=== PATIENT | female | born 1950 | race Caucasian/White ===

== ENCOUNTER → 2019-05-30 06:55 | Day surgery (SDC) | payer MEDICARE ==
--- NOTE | 2019-05-24 12:10 | HP ---
PREOPERATIVE HISTORY AND PHYSICAL: DATE OF SURGERY/ADMISSION: 05/30/19 [facility] DATE OF VISIT/ENCOUNTER: 05/10/19 ATTENDING SURGEON: Dorinda Trammell MD * (DICTATED BY MAURICIO SMART) PROCEDURE: Trigger finger release, right long finger. HISTORY OF PRESENT ILLNESS: This is a 68-year-old female who has had problems with triggering in her right middle finger for several months. She occasionally gets locking of the finger. She has received cortisone injection in the past which was helpful; however, the symptoms returned. She is now interested in pursuing surgical intervention for this problem. PAST MEDICAL HISTORY: 1. History of melanoma. 2. Varicose veins. 3. GERD. 4. History of migraine headache. PAST SURGICAL HISTORY: 1. Skin lesion resection, left submandibular area secondary to melanoma. 2. Emergency . 3. Right breast lumpectomy. 4. Right knee arthroscopy. MEDICATIONS: 1. Butalbital/acetaminophen/caffeine 50/325 one tab q.4 hours p.r.n. migraine headaches. 2. Valacyclovir HCL 500 mg every third day. 3. Xigv-doz-gxurjdh acid reflux medications. ALLERGIES: No known drug allergies. FAMILY MEDICAL HISTORY: Heart disease and cancer. 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 She denies tobacco use or recreational drug use. She drinks alcohol on rare occasion. REVIEW OF SYSTEMS: Negative for general, cephalic, cardiovascular, respiratory , GI, , other musculoskeletal, integumentary, endocrine, neurologic, and hematologic symptoms. Infectious Disease: Negative for MRSA, hepatitis C, and HIV. PHYSICAL EXAMINATION GENERAL: Well-developed, well-nourished 68-year-old female in no acute distress. VITAL SIGNS: Height 5 feet 2 inches, weight 180 pounds, pulse rate 94, blood pressure 132/78. HEENT: Normocephalic, atraumatic. Pupils are equal, round, and reactive to light and accommodation. Extraocular movements are intact. Throat is clear. NECK: Supple. No palpable lymph nodes. PULMONARY: Lungs are clear to auscultation bilaterally. No wheezes, rales, or rhonchi. CARDIOVASCULAR: Regular rate and rhythm. S1 and S2. No murmurs, rubs, or gallops. No edema. ABDOMEN: Positive bowel sounds. Soft and nontender. NEUROLOGICAL: Alert and oriented x3. Cranial nerves II through XII are intact. Sensation is intact to light touch. MUSCULOSKELETAL: On exam of her right hand, she has tenderness to palpation at the A1 nj of the middle finger and triggering with range of motion. Skin is intact. Neurovascular function is intact. IMPRESSION: Right long finger trigger finger. PLAN: The patient is scheduled to undergo a trigger finger release right long finger with Dr. Trammell on 05/30/19. She will return to the office 10 days postoperative for followup and suture removal. A prescription for tramadol was e-scribed to the patient's pharmacy for postoperative pain management. MAURICIO SMART [id number]/CPS #: [id number] MTDD
[~2019-05-30 06:55] MED LIST: Buffered Lidocaine 1% SYRIN* 1 ML/SYRINGE INTRADERM ONE; Lactated Ringers 1000 ML Bag* 1,000 ML IV SCH; Lidocaine 1% INJ* 10 MG/ML 30 ML SDV ONE; Midazolam* 1 MG/ML 2 ML VIAL (2 MG) ONE; Naloxone* 0.4 MG/ML 1 ML VIAL IV PRN; Propofol* 10 MG/ML 20 ML BTL ONE; fentaNYL* 50 MCG/ML 2 ML VIAL (100 MCG VIAL) ONE
--- NOTE | 2019-05-30 09:45 | OP ---
DATE OF OPERATION: 05/29/19 [facility] DATE OF : 52 SURGEON: Dorinda Trammell MD STUDIO DESIGNER: MAURICIO Barcenas ANESTHESIA: Local MAC. PRE-OP DIAGNOSIS: Right long finger trigger finger. POST-OP DIAGNOSIS: Right long finger trigger finger. OPERATIVE PROCEDURE: Right long finger trigger release. ESTIMATED BLOOD LOSS: Zero. TOURNIQUET TIME: About 10 minutes. INDICATIONS FOR PROCEDURE: Gianna is a 68-year-old female, who has triggering and locking of her right middle finger. She presents for trigger release. DESCRIPTION OF PROCEDURE: The patient was brought to the operating room, was given a sedation anesthetic and a local infiltration of 10 cc of 1% plain lidocaine in the palm of her right hand overlying the middle finger A1 nj. The skin of her right hand and forearm was prepped and draped in the usual sterile fashion. The hand and forearm were exsanguinated and the tourniquet elevated to 250 mmHg. A transverse incision was made centered over the A1 nj of the middle finger. We dissected through the subcutaneous tissue down to the A1 nj of the middle finger. The nj was incised longitudinally and completely released. The flexor tendons were in good condition. There was minimal tenosynovitis. The wound was irrigated and the skin edges were reapproximated with 4-0 nylon suture. The wound was dressed with Xeroform, 4x4 , Webril, and an Alok wrap. The patient tolerated the procedure well and was brought to the recovery room in good condition. [id number]/CPS #: [id number] MTDAna
[2019-05-30 10:02] VITALS: BP 143/66
== END | disposition home or self-care (01) ==
LOC: OREAST 06:55
PROVIDERS: ATTEND Orthopaedic Surgery
DX: M65.331 Trigger finger, right middle finger (principal); Z85.820 Personal history of malignant melanoma of skin; K21.9 Gastro-esophageal reflux disease without esophagitis
CPT/HCPCS: J2250; J2704; J3010

== ENCOUNTER 2021-01-02 10:00 | Inpatient (IN) ==
[2021-01-02] MEDS ORDERED: NS 0.9% 1000 ml BAG 1,000 ML IV ONE (11:39)
[2021-01-02 12:08] LABS: ABS Lymphocytes 1.2 10^3/ul (1.0-4.8); ABS Monocytes 0.3 10^3/ul (0-0.8); ABS Neutrophils 3.1 10^3/ul (1.5-7.7); Eosinophil % 0.5 %; Hematocrit 38 % (35-47); Hemoglobin 13.1 g/dL (12.0-16.0); Mean Corpuscular HGB Conc 34 g/dL (31-36); Mean Corpuscular Hemoglobin 31 pg (27-31); Mean Corpuscular Volume 91 fL (80-97); Mean Platelet Volume 7.9 fL (7.4-10.4); Nucleated Red Blood Cells % 0.1; Platelet Count 243 10^3/uL (150-450); Red Blood Count 4.23 10^6 /uL (3.70-4.87); Red Cell Distribution Width 13 % (10-15); White Blood Count 4.6 10^3/uL (3.5-10.8)
[2021-01-02 12:30] LABS: Albumin 4.1 g/dL (3.2-5.2); Albumin/Globulin Ratio 1.2 (1-3); Calcium 9.4 mg/dL (8.6-10.3); EGFR African American 95.6 (>60); Globulin 3.4 g/dL (2-4); Potassium 4.2 mmol/L (3.5-5.0); Total Bilirubin 0.4 mg/dL (0.2-1.0); Total Protein 7.5 g/dL (6.4-8.9)
[2021-01-02 13:05] LABS: TSH Ultra Thyroid Stim Horm 1.06 mcIU/mL (0.34-5.60)
[2021-01-02 13:52] LABS: Urine Appearance Clear; Urine Bilirubin Negative (Negative); Urine Blood Negative (Negative); Urine Color Straw; Urine Glucose Negative (Negative); Urine Ketones 1+ (Negative); Urine Nitrite Negative (Negative); Urine Protein Negative (Negative); Urine Specific Gravity 1.006 (1.002-1.030); Urine Urobilinogen Negative (Negative)
[2021-01-02 13:57] LABS: Urine Bacteria 1+ (Absent); Urine Red Blood Cell Trace(0-2/hpf) (Absent); Urine Squamous Epithelial Cell Present (Absent); Urine White Blood Cell 1+(6-10/hpf) (Absent)
[2021-01-02] MEDS ORDERED: Ondansetron 4 mg VIAL 2 MG/ML 2 ml VIAL IV PRN (15:28)
[2021-01-03] MEDS ORDERED: Gadoteridol (CONTRAST) 279.3 MG/ML 10 ML IV ONE (14:55)
[2021-01-05 06:06] LABS: ABS Eosinophils 0.1 10^3/ul (0-0.6); ABS Lymphocytes 1.8 10^3/ul (1.0-4.8); ABS Monocytes 0.4 10^3/ul (0-0.8); ABS Neutrophils 2.1 10^3/ul (1.5-7.7); Eosinophil % 2.7 %; Hematocrit 35 % (35-47); Hemoglobin 12.2 g/dL (12.0-16.0); Lymphocyte % 40.3 %; Mean Corpuscular HGB Conc 35 g/dL (31-36); Mean Corpuscular Hemoglobin 31 pg (27-31); Mean Corpuscular Volume 90 fL (80-97); Mean Platelet Volume 7.5 fL (7.4-10.4); Nucleated Red Blood Cells % 0.1; Platelet Count 236 10^3/uL (150-450); Red Cell Distribution Width 13 % (10-15); White Blood Count 4.5 10^3/uL (3.5-10.8)
[2021-01-05 06:26] LABS: Calcium 8.7 mg/dL (8.6-10.3); EGFR African American 97.2 (>60); EGFR Non-African American 80.3 (>60); Potassium 3.9 mmol/L (3.5-5.0)
[2021-01-06] MEDS ORDERED: ceFAZolin 2 GM PREMIX 2 GM/50 ML BAG IVPB ONE (12:00)
[2021-01-06 12:23] LABS: Activated Partial Thrombo Time 28.8 seconds (26.0-38.0); INR 1.14 (0.82-1.09)
[2021-01-06] MEDS ORDERED: Gadoteridol (CONTRAST) 279.3 MG/ML 10 ML IV ONE (15:49)
[2021-01-06] MEDS ORDERED: Iohexol 300 (CONTRAST) 10 ML SDV IV ONE (17:35)
[2021-01-07 06:07] LABS: ABS Eosinophils 0.1 10^3/ul (0-0.6); ABS Lymphocytes 1.6 10^3/ul (1.0-4.8); ABS Monocytes 0.4 10^3/ul (0-0.8); ABS Neutrophils 2.3 10^3/ul (1.5-7.7); Eosinophil % 2.2 %; Hematocrit 34 % (35-47); Hemoglobin 12.1 g/dL (12.0-16.0); Lymphocyte % 36.2 %; Mean Corpuscular HGB Conc 35 g/dL (31-36); Mean Corpuscular Hemoglobin 32 pg (27-31); Mean Corpuscular Volume 90 fL (80-97); Mean Platelet Volume 7.6 fL (7.4-10.4); Nucleated Red Blood Cells % 0.1; Platelet Count 232 10^3/uL (150-450); Red Blood Count 3.82 10^6 /uL (3.70-4.87); Red Cell Distribution Width 13 % (10-15); White Blood Count 4.4 10^3/uL (3.5-10.8)
[2021-01-07 06:11] LABS: INR 1.17 (0.82-1.09)
[2021-01-07 06:22] LABS: Albumin 3.6 g/dL (3.2-5.2); Albumin/Globulin Ratio 1.2 (1-3); Calcium 8.7 mg/dL (8.6-10.3); EGFR African American 95.6 (>60); Globulin 2.9 g/dL (2-4); Potassium 3.8 mmol/L (3.5-5.0); Total Bilirubin 0.4 mg/dL (0.2-1.0); Total Protein 6.5 g/dL (6.4-8.9)
[2021-01-07] MEDS ORDERED: levETIRAcetam 1000MG IVPREMIX 1,000 MG/100 ML BAG IVPB ONE (07:42)
[2021-01-07] MEDS ORDERED: Mannitol 25% (12.5 GM) 50 ML 12.5 GM/50 ML VIAL IV ONE (07:45)
[2021-01-07] MEDS ORDERED: Lidocaine 1% w EPI 1:200,000 SDV 30 ML VIAL ONE ×2 (09:28→13:09)
[2021-01-07] MEDS ORDERED: Bacitracin INJECTION 50,000 UNITS ONE ×3 (09:29→16:46)
[2021-01-07] MEDS ORDERED: Thrombin 5,000 UNITS 1 APPLIC KIT - topical use - TOPICAL ONE (09:29)
[2021-01-07] MEDS ORDERED: Bacitracin OINTMENT TUBE ONE (09:31)
[2021-01-07] MEDS ORDERED: Gelfoam Sponge SIZE 100 SPONGE ONE (09:31)
[2021-01-07] MEDS ORDERED: Buffered Lidocaine 1% SYRIN 1 ml INTRADERM ONE ×2 (09:33→10:08)
[2021-01-07] MEDS ORDERED: ceFAZolin 2 GM PREMIX 2 GM/50 ML BAG ONE (10:35)
[2021-01-07] MEDS ORDERED: Remifentanil 2 MG VIAL ONE ×2 (11:06→16:26)
[2021-01-07] MEDS ORDERED: Phenylephrine IV 10 MG/ML 1 ml VIAL ONE ×2 (11:06→11:21)
[2021-01-07] MEDS ORDERED: Propofol 10 MG/ML 20 ML BTL ONE ×2 (11:11→12:44)
[2021-01-07] MEDS ORDERED: Lidocaine 2% PF 5 ML VIAL ONE (11:12)
[2021-01-07] MEDS ORDERED: Midazolam 5 mg/ml concentrated 5 mg/ml 1 ml VIAL ONE (11:34)
[2021-01-07] MEDS ORDERED: Propofol 10 mg/ml 100 ML BTL 200 ML ONE (12:45)
[2021-01-07] MEDS ORDERED: Furosemide 20 mg/2 ml IV VIAL ONE (13:07)
[2021-01-07] MEDS ORDERED: Dexamethasone IV 4 MG/ML VIAL 1 ml VIAL ONE (13:08)
[2021-01-07] MEDS ORDERED: Lidocaine 1% w EPI 1:100,000 MDV 20 ML VIAL ONE (13:09)
[2021-01-07] MEDS ORDERED: Mannitol 25% (12.5 GM) 50 ML 12.5 GM/50 ML VIAL ONE (13:19)
[2021-01-07] MEDS ORDERED: Atropine 1 MG/ML INJ 1 ML VIAL ONE (13:45)
[2021-01-07] MEDS ORDERED: fentaNYL 100 mcg/2 ml 50 MCG/ML VIAL IV PRN (15:06)
[2021-01-07] MEDS ORDERED: DiMENhydriNATE IV 50 mg/ml 1 ml VIAL IV PUSH PRN (15:06)
[2021-01-07] MEDS ORDERED: Naloxone 0.4 mg VIAL 0.4 mg/ml 1 ml VIAL IV PRN (15:06)
[2021-01-07] MEDS ORDERED: Phenylephrine 40 mcg/mL 10mL (400mcg) SYRINGE ONE (15:46)
[2021-01-07 16:01] LABS: ABS Lymphocytes 0.6 10^3/ul (1.0-4.8); ABS Monocytes 0.1 10^3/ul (0-0.8); ABS Neutrophils 2.7 10^3/ul (1.5-7.7); Eosinophil % 0.5 %; Hematocrit 34 % (35-47); Hemoglobin 11.9 g/dL (12.0-16.0); Mean Corpuscular HGB Conc 35 g/dL (31-36); Mean Corpuscular Hemoglobin 31 pg (27-31); Mean Corpuscular Volume 90 fL (80-97); Platelet Count 224 10^3/uL (150-450); Red Blood Count 3.78 10^6 /uL (3.70-4.87); Red Cell Distribution Width 13 % (10-15); White Blood Count 3.4 10^3/uL (3.5-10.8)
[2021-01-07] MEDS ORDERED: ceFAZolin VIAL VIAL ONE (16:12)
[2021-01-07] MEDS ORDERED: Propofol 10 mg/ml 100 ML BTL 100 ML ONE (16:40)
[2021-01-07] MEDS ORDERED: Acetaminophen IV 1 GM/100ML 100 ML ONE (17:53)
[2021-01-07] MEDS ORDERED: fentaNYL 100 mcg/2 ml 50 MCG/ML VIAL ONE (17:53)
[2021-01-07] MEDS ORDERED: Ondansetron 4 mg VIAL 2 MG/ML 2 ml VIAL ONE (18:05)
[2021-01-07] MEDS ORDERED: niCARdipine 0.1MG/ML IVPREMIX 20 MG/200 ML BAG IV ONE (20:26)
[2021-01-07] MEDS: Morphine 2 MG/ML SYRINGE IV PRN ×2 (20:33→22:28)
[2021-01-07] MEDS: niCARdipine 0.1MG/ML IVPREMIX 20 MG/200 ML BAG IV SCH (20:40)
[2021-01-07] MEDS: HYDROcodone/ACETAMIN 5/325 mg TAB PO PRN (21:54)
[2021-01-08] MEDS: niCARdipine 0.1MG/ML IVPREMIX 20 MG/200 ML BAG IV SCH (01:17)
[2021-01-08] MEDS: Morphine 2 MG/ML SYRINGE IV PRN (01:19)
[2021-01-08 05:42] LABS: ABS Lymphocytes 0.6 10^3/ul (1.0-4.8); ABS Monocytes 0.5 10^3/ul (0-0.8); ABS Neutrophils 6.7 10^3/ul (1.5-7.7); Hematocrit 36 % (35-47); Hemoglobin 12.3 g/dL (12.0-16.0); Lymphocyte % 7.7 %; Mean Corpuscular HGB Conc 35 g/dL (31-36); Mean Corpuscular Hemoglobin 31 pg (27-31); Mean Corpuscular Volume 90 fL (80-97); Mean Platelet Volume 7.6 fL (7.4-10.4); Platelet Count 224 10^3/uL (150-450); Red Blood Count 3.97 10^6 /uL (3.70-4.87); Red Cell Distribution Width 13 % (10-15); White Blood Count 7.8 10^3/uL (3.5-10.8)
[2021-01-08 07:17] LABS: Calcium 8.7 mg/dL (8.6-10.3); EGFR African American 103.8 (>60); EGFR Non-African American 85.8 (>60); Potassium 4.2 mmol/L (3.5-5.0)
[2021-01-08] MEDS: HYDROcodone/ACETAMIN 5/325 mg TAB PO PRN ×2 (08:12→19:30)
[2021-01-08] MEDS ORDERED: Gadoteridol (CONTRAST) 279.3 MG/ML 10 ML IV SCH (09:40)
[2021-01-08] MEDS: cefTRIAXone 1 gm/50 mL NS BAG 1 GM/50 ML BAG IVPB SCH (16:40)
[2021-01-09] MEDS: HYDROcodone/ACETAMIN 5/325 mg TAB PO PRN ×2 (01:22→14:20)
[2021-01-09 06:49] LABS: ABS Lymphocytes 1.4 10^3/ul (1.0-4.8); ABS Monocytes 0.6 10^3/ul (0-0.8); Eosinophil % 0.2 %; Hematocrit 33 % (35-47); Hemoglobin 11.3 g/dL (12.0-16.0); Lymphocyte % 17.5 %; Mean Corpuscular HGB Conc 34 g/dL (31-36); Mean Corpuscular Hemoglobin 31 pg (27-31); Mean Corpuscular Volume 91 fL (80-97); Mean Platelet Volume 8.4 fL (7.4-10.4); Platelet Count 237 10^3/uL (150-450); Red Blood Count 3.64 10^6 /uL (3.70-4.87); Red Cell Distribution Width 14 % (10-15); White Blood Count 8.1 10^3/uL (3.5-10.8)
[2021-01-09 07:02] LABS: Calcium 8.2 mg/dL (8.6-10.3); EGFR African American 115.5 (>60); EGFR Non-African American 95.4 (>60); Potassium 4.1 mmol/L (3.5-5.0)
[2021-01-09] MEDS: Morphine 2 MG/ML SYRINGE IV PRN ×2 (07:24→14:43)
[2021-01-09] MEDS: cefTRIAXone 1 gm/50 mL NS BAG 1 GM/50 ML BAG IVPB SCH (17:34)
[2021-01-10 05:37] LABS: Calcium 8.2 mg/dL (8.6-10.3); Potassium 4.3 mmol/L (3.5-5.0)
[2021-01-10 05:42] LABS: EGFR African American 122.3 (>60); EGFR Non-African American 101.1 (>60)
[2021-01-10] MEDS: Dexamethasone IV 4 MG/ML VIAL 1 ml VIAL IV SLOW PU SCH ×3 (08:21→20:27)
[2021-01-10 08:58] LABS: Magnesium 1.8 mg/dL (1.9-2.7)
[2021-01-10] MEDS ORDERED: Magnesium Sulfate 2 gm BAG 2 GM/50 ML BAG IVPB ONE (09:40)
[2021-01-10 10:13] LABS: Phosphorus 2.6 mg/dL (2.5-5.0)
[2021-01-10] MEDS: cefTRIAXone 1 gm/50 mL NS BAG 1 GM/50 ML BAG IVPB SCH (16:50)
[2021-01-11] MEDS: Dexamethasone IV 4 MG/ML VIAL 1 ml VIAL IV SLOW PU SCH ×3 (02:39→15:48)
[2021-01-11 13:04] LABS: Calcium 8.9 mg/dL (8.6-10.3); EGFR African American 115.5 (>60); EGFR Non-African American 95.4 (>60); Magnesium 2.2 mg/dL (1.9-2.7); Phosphorus 2.3 mg/dL (2.5-5.0); Potassium 4.3 mmol/L (3.5-5.0)
[2021-01-11] MEDS ORDERED: Potassium Phosphate IV 15 MMOLE in NS 0.9% 250 ml 250 ML IVPB ONE (15:30)
[2021-01-11] MEDS: cefTRIAXone 1 gm/50 mL NS BAG 1 GM/50 ML BAG IVPB SCH (15:48)
[2021-01-12] MEDS: Dexamethasone IV 4 MG/ML VIAL 1 ml VIAL IV SLOW PU SCH (01:20)
[2021-01-12 05:19] LABS: Calcium 8.4 mg/dL (8.6-10.3); EGFR African American 141.5 (>60); EGFR Non-African American 116.9 (>60); Magnesium 1.9 mg/dL (1.9-2.7)
[2021-01-12] MEDS ORDERED: Dexamethasone IV 4 MG/ML VIAL 1 ml VIAL IV SLOW PU SCH (09:00)
[2021-01-12 12:06] VITALS: BP 141/70
[2021-01-13] MEDS ORDERED: Dexamethasone IV 4 MG/ML VIAL 1 ml VIAL IV SLOW PU SCH (09:00)
== END 2021-01-12 13:20 | disposition home or self-care (01) ==
LOC: MEDTELE 10:00 → ED 10:00 → MEDTELE 18:02 → ICU 01-07 18:30 → SSU 01-11 11:38
PROVIDERS: ADMIT Hospitalist; ATTEND Internal Medicine

== ENCOUNTER 2021-09-22 17:49 | Observation (INO) ==
[2021-09-22] MEDS ORDERED: NS 0.9% 1000 ml BAG 1,000 ML IV ONE (18:15)
[2021-09-22] MEDS ORDERED: Ondansetron 4 mg VIAL 2 MG/ML 2 ml VIAL IV ONE (18:23)
[2021-09-22 18:35] LABS: ABS Lymphocytes 0.9 10^3/ul (1.0-4.8); ABS Monocytes 0.2 10^3/ul (0-0.8); ABS Neutrophils 3.4 10^3/ul (1.5-7.7); Eosinophil % 0.2 %; Hematocrit 36 % (35-47); Hemoglobin 12.4 g/dL (12.0-16.0); Lymphocyte % 19.4 %; Mean Corpuscular HGB Conc 34 g/dL (31-36); Mean Corpuscular Hemoglobin 31 pg (27-31); Mean Corpuscular Volume 91 fL (80-97); Mean Platelet Volume 6.9 fL (7.4-10.4); Platelet Count 255 10^3/uL (150-450); Red Cell Distribution Width 12 % (10-15); White Blood Count 4.6 10^3/uL (3.5-10.8)
[2021-09-22 18:43] LABS: INR 1.12 (0.86-1.15)
[2021-09-22] MEDS ORDERED: Iodixanol (CONTRAST) 320 MG/ML 100 ML SDV IV ONE (18:45)
[2021-09-22 18:53] LABS: Albumin 4.3 g/dL (3.2-5.2); Albumin/Globulin Ratio 1.3 (1-3); Calcium 9.1 mg/dL (8.6-10.3); Globulin 3.4 g/dL (2-4); HDL Cholesterol 72.8 mg/dL; Total Bilirubin 0.3 mg/dL (0.2-1.0); Total Protein 7.7 g/dL (6.4-8.9); eGFR CKD-EPI 60.6 (>60)
[2021-09-22] MEDS ORDERED: Magnesium Hydroxide LIQ 30 ML UDC PO PRN (21:07)
[2021-09-22] MEDS ORDERED: Ondansetron 4 mg VIAL 2 MG/ML 2 ml VIAL IV PRN (21:07)
[2021-09-22] MEDS ORDERED: Prochlorperazine 5 mg/ml 2 ml VIAL (10 mg) IV ONE (21:15)
[2021-09-22] MEDS ORDERED: Fluticasone NASAL SPRAY 50MCG 16 gm SPRAY BTL BOTH NARES PRN (21:20)
[2021-09-22] MEDS ORDERED: Gadoteridol (CONTRAST) 279.3 MG/ML 10 ML IV ONE (21:53)
[2021-09-22] MEDS ORDERED: Enoxaparin 40 MG/0.4 ML SYR SUBCUT SCH (22:00)
[2021-09-22] MEDS: Valproic Acid IV 1,000 MG in NS 0.9% 100 ml BAG 100 ML IVPB ONE (23:37)
[2021-09-23] MEDS: Valproic Acid IV 1,000 MG in NS 0.9% 100 ml BAG 100 ML IVPB ONE (00:33)
[2021-09-23 01:34] LABS: Urine Appearance Clear; Urine Bilirubin Negative (Negative); Urine Blood 1+ (Negative); Urine Color Straw; Urine Glucose Negative (Negative); Urine Ketones Negative (Negative); Urine Nitrite Negative (Negative); Urine Protein Negative (Negative); Urine Specific Gravity 1.017 (1.002-1.030); Urine Urobilinogen Negative (Negative)
[2021-09-23 01:41] LABS: Urine Bacteria Absent (Absent); Urine Red Blood Cell Trace(0-2/hpf) (Absent); Urine Squamous Epithelial Cell Present (Absent); Urine White Blood Cell Trace(0-5/hpf) (Absent)
[2021-09-23 07:00] LABS: ABS Lymphocytes 1.5 10^3/ul (1.0-4.8); ABS Monocytes 0.5 10^3/ul (0-0.8); ABS Neutrophils 2.6 10^3/ul (1.5-7.7); Hematocrit 35 % (35-47); Hemoglobin 11.4 g/dL (12.0-16.0); Lymphocyte % 32.3 %; Mean Corpuscular HGB Conc 33 g/dL (31-36); Mean Corpuscular Hemoglobin 32 pg (27-31); Mean Corpuscular Volume 97 fL (80-97); Mean Platelet Volume 7.9 fL (7.4-10.4); Nucleated Red Blood Cells % 0.2; Platelet Count 226 10^3/uL (150-450); Red Blood Count 3.62 10^6 /uL (3.70-4.87); Red Cell Distribution Width 13 % (10-15); White Blood Count 4.6 10^3/uL (3.5-10.8)
[2021-09-23 07:07] LABS: Albumin 3.6 g/dL (3.2-5.2); Albumin/Globulin Ratio 1.3 (1-3); Calcium 8.5 mg/dL (8.6-10.3); Globulin 2.8 g/dL (2-4); HDL Cholesterol 60.4 mg/dL; Potassium 3.8 mmol/L (3.5-5.0); Total Bilirubin 0.4 mg/dL (0.2-1.0); Total Protein 6.4 g/dL (6.4-8.9); eGFR CKD-EPI 85.6 (>60)
[2021-09-23] MEDS ORDERED: Valproic Acid IV 750 MG in NS 0.9% 100 ml BAG 100 ML IVPB SCH ×2 (11:00→12:00)
[2021-09-23 13:53] VITALS: BP 133/61
== END 2021-09-23 15:15 | disposition home or self-care (01) ==
LOC: MEDTELE 17:49 → ED 17:49 → MEDTELE 23:16
PROVIDERS: ADMIT Internal Medicine; ATTEND Internal Medicine

== ENCOUNTER 2022-02-14 12:49 | Inpatient (IN) ==
[2022-02-14] MEDS ORDERED: NS 0.9% 1000 ml BAG 1,000 ML IV ONE (12:52)
[2022-02-14] MEDS ORDERED: Iodixanol (CONTRAST) 320 MG/ML 100 ML SDV IV ONE (13:25)
[2022-02-14 13:46] LABS: Hematocrit 33 % (35-47); Hemoglobin 10.9 g/dL (12.0-16.0); Mean Corpuscular HGB Conc 33 g/dL (31-36); Mean Corpuscular Hemoglobin 35 pg (27-31); Mean Corpuscular Volume 104 fL (80-97); Mean Platelet Volume 7.1 fL (7.4-10.4); Platelet Count 184 10^3/uL (150-450); Red Blood Count 3.13 10^6 /uL (3.70-4.87); Red Cell Distribution Width 18 % (10-15); White Blood Count 4.3 10^3/uL (3.5-10.8)
[2022-02-14 14:10] LABS: Activated Partial Thrombo Time 27.3 seconds (26.0-38.0); INR 1.11 (0.86-1.15)
[2022-02-14 14:15] LABS: Albumin/Globulin Ratio 1.6 (1-3); Calcium 7.9 mg/dL (8.6-10.3); Globulin 1.9 g/dL (2-4); HDL Cholesterol 60.7 mg/dL; Potassium 4.5 mmol/L (3.5-5.0); Total Bilirubin 0.3 mg/dL (0.2-1.0); Total Protein 4.9 g/dL (6.4-8.9); eGFR CKD-EPI 59.9 (>60)
[2022-02-14 15:35] LABS: Anisocytosis 1+; Macrocytosis 1+
[2022-02-14 15:37] LABS: Burr Cells 1+
[2022-02-14 15:39] LABS: ABS Eosinophils 0.1 10^3/ul (0-0.6); ABS Lymphocytes 0.8 10^3/ul (1.0-4.8); ABS Monocytes 0.7 10^3/ul (0-0.8); ABS Neutrophils 2.8 10^3/ul (1.5-7.7); Eosinophil % 1.2 %; Lymphocyte % 18.8 %
[2022-02-14 15:40] LABS: High Sensitivity Troponin 1 Hr 3 pg/mL (<15)
[2022-02-14] MEDS: Lactated Ringers 1000 ml BAG 1,000 ML IV SCH (20:11)
[2022-02-15 05:00] LABS: Hematocrit 32 % (35-47); Hemoglobin 10.6 g/dL (12.0-16.0); Mean Corpuscular HGB Conc 33 g/dL (31-36); Mean Corpuscular Hemoglobin 34 pg (27-31); Mean Corpuscular Volume 103 fL (80-97); Mean Platelet Volume 6.9 fL (7.4-10.4); Platelet Count 168 10^3/uL (150-450); Red Blood Count 3.09 10^6 /uL (3.70-4.87); Red Cell Distribution Width 18 % (10-15); White Blood Count 4.7 10^3/uL (3.5-10.8)
[2022-02-15 05:06] LABS: ABS Eosinophils 0.1 10^3/ul (0-0.6); ABS Lymphocytes 1.1 10^3/ul (1.0-4.8); ABS Monocytes 0.7 10^3/ul (0-0.8); ABS Neutrophils 2.8 10^3/ul (1.5-7.7); Eosinophil % 1.2 %; Lymphocyte % 23.7 %; Nucleated Red Blood Cells % 0.1
[2022-02-15 05:43] LABS: Calcium 7.7 mg/dL (8.6-10.3); Magnesium 1.8 mg/dL (1.9-2.7); Potassium 4.1 mmol/L (3.5-5.0)
[2022-02-15] MEDS ORDERED: Magnesium Sulfate IV 1GM/100ML 1 GM/100 ML BAG IV ONE (06:15)
[2022-02-15] MEDS ORDERED: Valproic Acid IV 500 MG in NS 0.9% 100 ml BAG 100 ML IVPB ONE (11:21)
[2022-02-15] MEDS: Lactated Ringers 1000 ml BAG 1,000 ML IV SCH (14:14)
[2022-02-16] MEDS: Lactated Ringers 1000 ml BAG 1,000 ML IV SCH (10:30)
[2022-02-16 11:56] LABS: Magnesium 1.9 mg/dL (1.9-2.7); Potassium 4.4 mmol/L (3.5-5.0); eGFR CKD-EPI 72.6 (>60)
[2022-02-16] MEDS ORDERED: Phenytoin 100 mg ER CAP PO ONE (14:17)
[2022-02-16] MEDS ORDERED: Enoxaparin 40 MG/0.4 ML SYR SUBCUT SCH (21:00)
[2022-02-16] MEDS ORDERED: Phenytoin 100 mg ER CAP PO SCH (21:00)
[2022-02-17 05:46] LABS: Calcium 7.8 mg/dL (8.6-10.3); Magnesium 1.9 mg/dL (1.9-2.7); Potassium 3.9 mmol/L (3.5-5.0); eGFR CKD-EPI 76.9 (>60)
[2022-02-17 11:53] VITALS: BP 96/56
== END 2022-02-17 15:15 | DRG 92 ==
LOC: ED 12:49 → EDHOLD 14:57 → SUATTDRO 14:57 → ICU 17:34 → MED 02-15 14:36
PROVIDERS: ADMIT Internal Medicine Critical Care Medicine; ATTEND Family Medicine

== ENCOUNTER 2022-04-24 08:37 | Observation (INO) ==
[2022-04-24] MEDS ORDERED: NS 0.9% 1000 ml BAG 1,000 ML IV ONE (08:57)
[2022-04-24] MEDS ORDERED: levETIRAcetam 1000MG IVPREMIX 1,000 MG/100 ML BAG IVPB ONE (09:08)
[2022-04-24 09:47] LABS: ABS Lymphocytes 0.5 10^3/ul (1.0-4.8); ABS Monocytes 0.4 10^3/ul (0-0.8); ABS Neutrophils 3.4 10^3/ul (1.5-7.7); Eosinophil % 0.3 %; Hematocrit 35 % (35-47); Hemoglobin 11.6 g/dL (12.0-16.0); Lymphocyte % 12.3 %; Mean Corpuscular HGB Conc 33 g/dL (31-36); Mean Corpuscular Hemoglobin 33 pg (27-31); Mean Corpuscular Volume 99 fL (80-97); Mean Platelet Volume 6.7 fL (7.4-10.4); Nucleated Red Blood Cells % 0.1; Platelet Count 242 10^3/uL (150-450); Red Blood Count 3.56 10^6 /uL (3.70-4.87); Red Cell Distribution Width 13 % (10-15); White Blood Count 4.3 10^3/uL (3.5-10.8)
[2022-04-24 10:14] LABS: INR 1.03 (0.89-1.11)
[2022-04-24 10:20] LABS: High Sens Troponin Baseline 68 pg/mL (<15)
[2022-04-24 10:27] LABS: ALT 10 U/L (7-52); AST 22 U/L (13-39); Albumin 3.3 g/dL (3.2-5.2); Albumin/Globulin Ratio 1.5 (1-3); Alcohol, S < 13 mg/dL (<13); Alkaline Phosphatase 68 U/L (35-149); Anion Gap 10 mmol/L (2-11); Blood Urea Nitrogen 9 mg/dL (6-24); CO2 Carbon Dioxide 27 mmol/L (22-32); Calcium 8.3 mg/dL (8.6-10.3); Chloride 106 mmol/L (101-111); Globulin 2.2 g/dL (2-4); Glucose 130 mg/dL (70-100); Magnesium 1.6 mg/dL (1.9-2.7); Phenytoin 14.5 mcg/mL (10-20); Potassium 4.3 mmol/L (3.5-5.0); Sodium 143 mmol/L (135-145); Total Protein 5.5 g/dL (6.4-8.9); eGFR CKD-EPI 93.6 (>60)
[2022-04-24 10:35] LABS: TSH Ultra Thyroid Stim Horm 4.31 mcIU/mL (0.34-5.60)
[2022-04-24] MEDS ORDERED: Dexamethasone IV 4 MG/ML VIAL 1 ml VIAL IV SLOW PU ONE (11:16)
[2022-04-24 11:17] LABS: High Sensitivity Troponin 1 Hr 100 pg/mL (<15)
[2022-04-24 12:49] LABS: Urine Appearance Clear; Urine Bilirubin Negative (Negative); Urine Blood Negative (Negative); Urine Color Yellow; Urine Glucose Negative (Negative); Urine Ketones Negative (Negative); Urine Nitrite Negative (Negative); Urine Protein Negative (Negative); Urine Urobilinogen 0.2 (Negative) (Negative)
[2022-04-24] MEDS ORDERED: Magnesium Hydroxide LIQ 30 ML UDC PO PRN (13:22)
[2022-04-24] MEDS ORDERED: Sulfamethox/Trimethoprim DS TAB 800/160 mg PO SCH (14:00)
[2022-04-24] MEDS ORDERED: Magnesium Sulfate IV 3 GM in NS 0.9% 100 ml BAG 100 ML IVPB ONE (14:27)
[2022-04-24] MEDS ORDERED: LORazepam 2 mg VIAL 1 ml IV PUSH ONE (14:52)
[2022-04-24] MEDS ORDERED: Lorazepam PYXIS KEY PRN (14:52)
[2022-04-24] MEDS ORDERED: Dexamethasone IV 10 MG in NS 0.9% 50 ML 50 ML IVPB ONE (16:08)
[2022-04-24] MEDS ORDERED: Gadoteridol (CONTRAST) 279.3 MG/ML 10 ML IV ONE (16:30)
[2022-04-24] MEDS: Enoxaparin 40 MG/0.4 ML SYR SUBCUT SCH (16:55)
[2022-04-24 17:42] LABS: High Sensitivity Troponin 3 Hr 256 pg/mL (<15)
[2022-04-24] MEDS: Phenytoin 100 mg ER CAP PO SCH (20:59)
[2022-04-24 23:04] LABS: High Sensitivity Troponin 1 Hr 180 pg/mL (<15)
[2022-04-24] MEDS: Dexamethasone IV 4 MG/ML VIAL 1 ml VIAL IV SLOW PU SCH (23:54)
[2022-04-25] MEDS: Dexamethasone IV 4 MG/ML VIAL 1 ml VIAL IV SLOW PU SCH ×2 (05:45→12:07)
[2022-04-25 05:50] LABS: Hematocrit 36 % (35-47); Hemoglobin 11.5 g/dL (12.0-16.0); Mean Corpuscular HGB Conc 32 g/dL (31-36); Mean Corpuscular Hemoglobin 32 pg (27-31); Mean Corpuscular Volume 99 fL (80-97); Mean Platelet Volume 6.8 fL (7.4-10.4); Platelet Count 237 10^3/uL (150-450); Red Cell Distribution Width 12 % (10-15); White Blood Count 3.2 10^3/uL (3.5-10.8)
[2022-04-25 06:42] LABS: Blood Urea Nitrogen 9 mg/dL (6-24); CO2 Carbon Dioxide 24 mmol/L (22-32); Chloride 104 mmol/L (101-111); Glucose 121 mg/dL (70-100); Magnesium 2.3 mg/dL (1.9-2.7); Sodium 138 mmol/L (135-145); eGFR CKD-EPI 97.7 (>60)
[2022-04-25 06:44] LABS: Anion Gap 10 mmol/L (2-11)
[2022-04-25] MEDS: Phenytoin 100 mg ER CAP PO SCH ×2 (09:22→21:30)
[2022-04-25] MEDS: Aspirin EC 81 mg TAB.EC (enteric coated) PO SCH (09:22)
[2022-04-25] MEDS: Fluticasone NASAL SPRAY 50MCG 16 gm SPRAY BTL INTRANASAL SCH (09:23)
[2022-04-25] MEDS: Enoxaparin 40 MG/0.4 ML SYR SUBCUT SCH (13:38)
[2022-04-26] MEDS: Phenytoin 100 mg ER CAP PO SCH (08:52)
[2022-04-26] MEDS: Aspirin EC 81 mg TAB.EC (enteric coated) PO SCH (08:53)
[2022-04-26] MEDS: Fluticasone NASAL SPRAY 50MCG 16 gm SPRAY BTL INTRANASAL SCH (08:57)
[2022-04-26 11:25] VITALS: BP 122/59
[2022-04-28 11:12] LABS: Lacosamide 0.7 mcg/mL (1.0 - 10.0)
== END 2022-04-26 12:53 ==
LOC: EDHOLD 08:37 → ED 08:37 → SUATTDRO 12:49 → MED 20:47
PROVIDERS: ADMIT Internal Medicine; ATTEND Internal Medicine